=== PATIENT | male | born 1950 | race Caucasian/White ===

== ENCOUNTER 2016-04-17 10:54 | Emergency (ER) | payer OTHER ==
--- NOTE | 2016-04-17 10:58 | ER Document Report ---
ED Medical Screen (RME) - General Stated Complaint: FINGER INJURY Mode of Arrival: Ambulatory Information source: Patient Notes: Patient presents to the emergency department with his left fifth finger almost fully amputed at [facility] after it was caught in a eliseo. Patient is [place], unsure of last tetanus. I have greeted and performed a rapid initial assessment of this patient. A comprehensive ED assessment and evaluation of the patient, analysis of test results and completion of the medical decision making process will be conducted by additional ED providers. - Related Data Allergies/Adverse Reactions: No Known Allergies Allergy (Unverified 04/17/16 10:56)
[2016-04-17] MEDS ORDERED: OXYCODONE-ACETAMINOPHEN 5-325 MG TABLET PO ONE (11:08)
[2016-04-17] MEDS ORDERED: OXYCODONE-ACETAMINOPHEN 5-325 MG TABLET ONE (11:09)
--- NOTE | 2016-04-17 11:11 | ER Document Report ---
ED General - General Chief Complaint: Finger Injury Stated Complaint: FINGER INJURY Time seen by provider: 11:09 Mode of Arrival: Ambulatory Information source: Patient Notes: 65-year-old male states he got his left fifth finger caught on a eliseo approximately 30 minutes prior to arrival and reports the and was almost epidemic. He denies injury to his other fingers says he's not had any other recent medical problems. He reports fracture to his right foot many years ago but doesn't have a regular orthopedist. Physical Exam: General: Alert, appears well. HEENT: Normocephalic. Atraumatic. PERRLA. Extraocular movements intact. Oropharynx clear. Neck: Supple. Non-tender. No JVD Respiratory: No respiratory distress. Clear and equal breath sounds bilaterally. Cardiovascular: Regular rate and rhythm. Abdominal: Normal Inspection. Soft, non-tender. No distension. Normal Bowel Sounds. Back: Non-tender. No deformity or step off. Extremities: Moves all four extremities. Left upper extremity has intact motion no obvious deformity to the thumb long index and ring fingers of left hand. Radial and ulnar pulses are intact. There is a deep laceration involving the distal phalanx of the fifth finger proximal to the nail Neurological: Cranial nerves II-XII grossly intact bilaterally. Strength 5/5 throughout. Sensation intact to light touch. Normal cognition. AAOx4. Normal speech. Psychological: Normal affect. Normal Mood. Skin: Warm. Dry. Normal color. TRAVEL OUTSIDE OF THE [place] IN LAST 30 DAYS: No - Related Data Allergies/Adverse Reactions: No Known Allergies Allergy (Unverified 04/17/16 10:56) Past Medical History - General Information source: Patient - Social History Smoking Status: Current Every Day Smoker Chew tobacco use (# tins/day): No Frequency of alcohol use: None Drug Abuse: None Family History: Reviewed & Not Pertinent Patient has suicidal ideation: No Patient has homicidal ideation: No - Past Medical History Cardiac Medical History: Reports: Hx Hypertension Renal/ Medical History: Denies: Hx Peritoneal Dialysis Review of Systems - Review of Systems Constitutional: denies: Chills, Fever EENT: denies: Ear pain, Throat pain Cardiovascular: denies: Chest pain Respiratory: denies: Cough Gastrointestinal: denies: Abdominal pain, Nausea, Vomiting Musculoskeletal: denies: Back pain Hematologic/Lymphatic: denies: Swollen glands Neurological/Psychological: denies: Weakness, Numbness Course - Re-evaluation Re-evalutation: 04/17/16 14:09 Prior to the wound repair are discussed case with Dr. Sheldon of the local orthopedic group. [facility] at this time has no one electron microprobe operator for orthopedics and this call was a courtesy only. He did recommend reapproximation and then loose closure with discharge on antibiotics and he was agreeable having the patient follow-up in her office tomorrow. Dr. ernst of that group also called back later as a courtesy and confirmed that offer. The patient however reports that he have access to an orthopedist in [place] which is much closer to where he lives and an acquaintance with him has arranged for follow-up at that office tomorrow. I have emphasized to them that some orthopedist should see the patient tomorrow and I will provide them with number for the local orthopedic group should they follow-up in [place] fall through Procedures - Laceration/Wound Repair Left Distal Finger 5th digit Time completed: 13:30 Wound length (cm): 5 Wound's Depth, Shape: Into muscle, Irregular, Stellate, Nail-avulsed, Contused tissue Laceration pre-procedure: Betadine prep applied Anesthetic type: 1% Lidocaine Volume Anesthetic (mLs): 4 - digital block Wound explored: Clean, No foreign body removed Irrigated w/ Saline (mLs): 200 Wound Debrided: Minimal Wound Repaired With: Sutures Suture Size/Type: 4:0 Number of Sutures: 6 Layer Closure?: No Post-procedure wound care: Sterile dressing applied, Splint applied Post-procedure NV exam normal: No Complications: No Notes: 04/17/16 13:59 Patient And draped in sterile fashion and after digital block was performed more thorough examination of the injury was performed. Laceration to the scan is circumferential but there is some deeper tissue on the flexor surface which appears to be holding the fingertip on. The nail itself is not lacerated but I was not able to identify anything resembling a germinal matrix. The wound was thoroughly explored and did not identify any foreign bodies and there was no dirt or other contaminants on the skin. I was not able to identify any tendons. Fingertip was realigned and then loosely sutured in place with 4-0 nylon 6. The patient did have good blood flow to the fingertip after procedure. Follow-up x-ray showed still markedly malalignment of the bony fragments. Second attempt was made at realignment and follow-up x-ray showed a much better reduction and a metal splint is applied Discharge - Discharge Clinical Impression: Open fracture Condition: Stable Disposition: HOME, SELF-CARE Additional Instructions: Fracture You have a fracture. The typical broken bone requires only protection and sufficient time for healing. "Setting" is necessary only if the bones are crooked or out of position. The physician will re-assess you periodically to make certain that the bone heals without complications. It's important that you follow the instructions given you. The initial treatment is immobilization, elevation of the injury, and cold packs. Not all fractures require a cast. Depending on the location and type of fracture, immobilization may consist of a splint, cast, sling, bulky dressing , or simply rest. The length of time required for healing depends on the location and type of fracture, and on the age of the patient. The treatment plan the physician has outlined for you is customized to your fracture and health condition. Call the doctor or return at once if pain becomes severe, or if severe swelling or numbness develop. Laceration Care Your laceration has been sutured to keep the skin edges aligned during healing. The time of suture removal depends on the nature and location of your cut. Please follow the care instructions the doctor has outlined for you and return for further care, according to the schedule you've been given. Keep the wound and dressing clean. Unless you were told otherwise, you may shower daily, blotting the wound dry with a clean, unused towel. At other times, If the dressing gets wet or blood soaked, remove it and blot the wound dry, then reapply a new dressing. Unless you were instructed otherwise, dressings should be changed at least daily. If any signs of infection occur (swelling, redness, increasing tenderness, red streaks, tender lumps in the armpit or groin above the laceration, or fever) , see the doctor immediately. You must see an orthopedic surgeon tomorrow to have your finger rechecked. The bone has been realigned in the fingertip has been sutured on but this repair is loose and fragile and the splint should remain on until you see the orthopedist. He will be given the number for the orthopedic group in [place] and they will see you tomorrow if you're unable to see the orthopedist in [place] Prescriptions: Cephalexin Monohydrate [Keflex 500 mg Capsule] 500 mg PO QID #40 capsule Oxycodone HCl/Acetaminophen [Percocet 5-325 mg Tablet] 1 - 2 tab PO Q4H PRN #25 tablet PRN Reason: Sulfamethoxazole/Trimethoprim [Bactrim Ds Tablet] 1 each PO BID #20 tablet Referrals: RACHEL JENKINS DO [ACTIVE STAFF] - Follow up tomorrow
[2016-04-17] MEDS ORDERED: LIDOCAINE 1% INJ-PF (10 MG/ML) 30 ML SDV INJ ONE (11:50)
[2016-04-17] MEDS ORDERED: CEPHALEXIN 500 MG CAPSULE PO ONE (12:54)
[2016-04-17] MEDS ORDERED: SULFAMETHOXAZOLE/TRIMETHOPRIM 800-160 MG TABLET PO ONE (12:54)
[2016-04-17] MEDS ORDERED: MORPHINE SULFATE 10 MG/ML INJ IM ONE (13:36)
[2016-04-17] MEDS ORDERED: DIPH/PERTUSS(ACELL)/TETANUS VAC/PF 0.5 ML SYR (>=10YO) IM ONE (14:13)
[2016-04-17 14:35] VITALS: BP 142/80
== END 2016-04-17 14:32 | disposition home or self-care (01) ==
LOC: ER 10:54
PROC: 0PSVXZZ Reposition Left Finger Phalanx, External Approach (ICD-10-PCS; principal; 2016-04-17)
DX: S62.637B Displaced fracture of distal phalanx of left little finger, initial encounter for open fracture (principal); W23.0XXA Caught, crushed, jammed, or pinched between moving objects, initial encounter; F17.200 Nicotine dependence, unspecified, uncomplicated; I10 Essential (primary) hypertension
CPT/HCPCS: 99283; 90471; 73140; 90715; 26755; J3490